=== PATIENT | female | born 1950 | race Caucasian/White ===

== ENCOUNTER → 2016-09-28 | Outpatient (CLI) | payer OTHER | LOC: FIMAGING 13:14 | PROVIDERS: ATTEND Internal Medicine Gastroenterology | DX: R93.5 Abnormal findings on diagnostic imaging of other abdominal regions, including retroperitoneum (principal) ==

== ENCOUNTER → 2016-12-21 | Outpatient (CLI) | payer OTHER ==
[~2016-12-21] MED LIST: GADOBUTROL 10 ML VIAL IVP ONE; GLUCAGON,HUMAN RECOMBINANT 0.3 MG in SYRINGE 0.3 ML IVP ONE; GLUCAGON,HUMAN RECOMBINANT 1 MG VIAL IV ONE
[2016-12-21 13:00] LABS: CREATININE 1.2 mg/dL (0.6-1.0)
== END ==
LOC: FIMAGING 12:02
PROVIDERS: ATTEND Internal Medicine Gastroenterology
DX: K50.919 Crohn's disease, unspecified, with unspecified complications (principal)
CPT/HCPCS: 72196; 74182; A9585; J1610

== ENCOUNTER 2017-02-16 09:01 | Day surgery (SDC) | payer OTHER ==
[2017-02-16] MEDS ORDERED: LIDOCAINE 1% 2 ML INJ ID PRN (09:30)
[2017-02-16] MEDS ORDERED: LR 1,000 ML IV ONE (09:30)
--- NOTE | 2017-02-16 09:48 | PDANEPAE ---
ANE History of Present Illness 66 year old female w/ PMHx of Crohn's Dz presents for colonoscopy. Patient has had multiple colonoscopies previously but states she did not tolerate the "twilight" anesthesia. Patient with high degree of anxiety surrounding today's procedure. ANE Past Medical History - Cardiovascular History Hx Hypertension: No Hx Arrhythmias: No Hx Chest Pain: No Hx Coronary Artery / Peripheral Vascular Disease: No Hx CHF / Valvular Disease: No Hx Palpitations: No - Pulmonary History Hx COPD: No Hx Asthma/Reactive Airway Disease: No Hx Recent Upper Respiratory Infection: No Hx Oxygen in Use at Home: No Hx Sleep Apnea: No Sleep Apnea Screening Result - Last Documented: Negative - Neurologic History Hx Cerebrovascular Accident: No Hx Seizures: No Hx Dementia: No - Endocrine History Hx Diabetes: No Hypothyroid: No Hyperthyroid: No Obesity: no - Renal History Hx Renal Disorders: No - Liver History Hx Hepatic Disorders: No - Neurological & Psychiatric Hx Hx Neurological and Psychiatric Disorders: Yes Neurological / Psychiatric History Comment: lots of anxiety surrounding procedure - Cancer History Hx Cancer: No - Congenital Disorder History Hx Congenital Disorders: No - GI History Hx Gastrointestinal Disorders: Yes Gastrointestinal History Comment: chrons disease. multiple scopes- has lots of pain with twilight anesthesia and these scopes - Other Health History Other Health History: wears glasses - Chronic Pain History Chronic Pain: Yes (abd pain, sI joint pain and cannot walk without shoes) - Surgical History Prior Surgeries: only has had scopes with twilight ANE Review of Systems - Exercise capacity Exercise capacity: >=4 METS METS (RN): 4 METS ANE Patient History - Allergies Allergies/Adverse Reactions: Penicillins Allergy (Verified 02/10/17 12:02) Unknown Sulfa (Sulfonamide Antibiotics) Allergy (Verified 02/10/17 12:02) Rash - Home Medications Home medications: home medication list seen and reviewed Home Medications: Remicade Inj 100 mg (*) 02/10/17 [Last Taken 3 Weeks Ago] - NPO status NPO Status: no food or drink >8 hours - Anes Hx Hx Anesthesia Complications (with details): No previous anesthesia, only concious sedation. - Smoking Hx Smoking Status: Never smoked - Alcohol Use Alcohol Use: None - Family Anes Hx Family Anes Hx: none Family Hx Anesthesia Complications: none ANE Labs/Vital Signs - Vital Signs Vital Signs: reviewed preoperatively; see RN documention for details Height: 154.94 cm Weight: 42.184 kg ANE Physical Exam - Airway Mallampati Score: Class 1 Mouth exam: normal dental/mouth exam - Pulmonary Pulmonary: no respiratory distress - Cardiovascular Cardiovascular: regular rate and rhythym - ASA Status ASA Status: II ANE Anesthesia Plan Anesthesia Plan: GA with mask
[2017-02-16] MEDS ORDERED: MIDAZOLAM 2 MG/2 ML VIAL IVP ONE (09:49)
[2017-02-16] MEDS ORDERED: PROPOFOL 200 MG/20 ML VIAL ONE ×2 (09:58→10:25)
--- NOTE | 2017-02-16 10:00 | PDGENHP ---
History and Physical - Chief Complaint Presents for Colonoscopy - History of Present Illness Patient with hx of colon polyps and crohns disease. History Information - Allergies/Home Medication List Allergies/Adverse Reactions: Penicillins Allergy (Verified 02/10/17 12:02) Unknown Sulfa (Sulfonamide Antibiotics) Allergy (Verified 02/10/17 12:02) Rash Home Medications: Remicade Inj 100 mg (*) 02/10/17 [Last Taken 3 Weeks Ago] I have personally reviewed and updated: family history, medical history, social history, surgical history - Past Medical History Crohn's Disease Additional medical history: Crohns, Colon Polyps - Family History Negative for: asthma - Social History Smoking Status: Never smoked Alcohol Use: None Drug Use: None Review of Systems ROS: 10pt was reviewed & negative except for what was stated in HPI & below Physical Exam Temp Pulse Resp BP Pulse Ox 37.0 C 84 14 149/89 H 96 02/16/17 09:33 02/16/17 09:33 02/16/17 09:33 02/16/17 09:33 02/16/17 09:33 Constitutional: no apparent distress Eyes: PERRL Ears, Nose, Mouth, Throat: moist mucous membranes Cardiovascular: regular rate and rhythym Respiratory: no respiratory distress Gastrointestinal: normoactive bowel sounds, soft, non-tender abdomen, no palpable masses Skin: warm Musculoskeletal: full muscle strength Neurologic: AAOx3 Psychiatric: interacting appropriately Assessment & Plan Assessment: 1. hx of colon polyps 2. hx of crohns disease Plan: colonoscopy with anesthesia
[2017-02-16] MEDS ORDERED: MIDAZOLAM 2 MG/2 ML VIAL ONE (10:05)
[2017-02-16] MEDS ORDERED: ONDANSETRON 4 MG/2 ML VIAL IVP PRN (10:29)
[2017-02-16] MEDS ORDERED: NALOXONE HCL 0.4 MG/ML INJ IVP PRN (10:29)
[2017-02-16] MEDS ORDERED: fentaNYL 100 MCG/2 ML INJ IVP PRN (10:29)
[2017-02-16] MEDS ORDERED: LR 500 ML IV PRN (10:29)
[2017-02-16] MEDS ORDERED: ONDANSETRON 4 MG/2 ML VIAL ONE (10:30)
[2017-02-16] MEDS ORDERED: DEXAMETHASONE 4 MG/ML VIAL ONE (10:30)
--- NOTE | 2017-02-16 10:43 | SUROPNOTE ---
[facility] Operative Report - Surgery COLONOSCOPY Pre-Op Dx: Crohns, hx of colon polyps Post-Op Dx: Same Meds: per anesthesia Complications: none acutely EBL: none Findings: 1. scattered apthous ulceration and erythema in terminal ileum - bx'd 2. IC Valve inflammed - bx'd in same wilfrid ar above 3. normal colon otherwise Recs: 1. await bx results 2. continue current meds, but may need to change/adjust crohn's therapy given active disease noted today 3. recall colonoscopy in 5yrs 4. my office will call pt with path results n 7-10days
--- NOTE | 2017-02-16 11:08 | POSTANESTH ---
Post Anesthetic Evaluation Cardiovascular Status: Normal, Stable Respiratory Status: Normal, Stable Level of Consciousness/Mental Status: Can Participate in Eval Pain Control: Adequate, Prn Tx Ordered Nausea/Vomiting Control: Adequate, Prn Tx Ordered Complications Possibly Related to Anesthesia: None Noted
[2017-02-16 11:14] VITALS: RESP 15
[2017-02-16 12:51] VITALS: BP 112/74; PULSE 95; TEMP 97.7; O2SAT 98
== END 2017-02-16 12:15 | disposition home or self-care (01) ==
LOC: FSGY 09:01
PROVIDERS: ATTEND Internal Medicine Gastroenterology
PROC: 0DBB8ZX Excision of Ileum, Via Natural or Artificial Opening Endoscopic, Diagnostic (ICD-10-PCS; principal; 2017-02-16 10:30)
DX: Z86.010 Personal history of colon polyps (principal); K50.00 Crohn's disease of small intestine without complications
CPT/HCPCS: J1100; J2250; J2405; J2704

== ENCOUNTER → 2017-02-22 | Outpatient (CLI) | payer OTHER | LOC: FIMAGING 11:25 | PROVIDERS: ATTEND Physician Assistant Medical | DX: Z12.31 Encounter for screening mammogram for malignant neoplasm of breast (principal) | CPT/HCPCS: G0202 ==

== ENCOUNTER → 2017-09-27 | Outpatient (CLI) | payer OTHER ==
[~2017-09-27] MED LIST changes: +GLUCAGON HCL 0.3 MG in SYRINGE 0.3 ML IVP ONE; -GLUCAGON,HUMAN RECOMBINANT 0.3 MG in SYRINGE 0.3 ML IVP ONE; -GLUCAGON,HUMAN RECOMBINANT 1 MG VIAL IV ONE
== END ==
LOC: FIMAGING 10:15
PROVIDERS: ATTEND Internal Medicine Gastroenterology
DX: K50.018 Crohn's disease of small intestine with other complication (principal)
CPT/HCPCS: 72196; 74182; A9585; J1610

== ENCOUNTER → 2018-06-12 | Outpatient (CLI) | payer OTHER | LOC: FIMAGING 13:44 | PROVIDERS: ATTEND Physician Assistant Medical | DX: Z12.31 Encounter for screening mammogram for malignant neoplasm of breast (principal) ==

== ENCOUNTER → 2018-06-13 | Outpatient (CLI) | payer OTHER | LOC: FIMAGING 10:07 | PROVIDERS: ATTEND Internal Medicine Gastroenterology | DX: K50.013 Crohn's disease of small intestine with fistula (principal); K59.00 Constipation, unspecified; N28.1 Cyst of kidney, acquired | CPT/HCPCS: 72196; 74182; A9585; J1610 ==